=== PATIENT | male | born 1985 | race Caucasian/White ===

== ENCOUNTER 2020-06-13 16:47 | Emergency (ER) | payer OTHER, SELFPAY ==
[2020-06-13 16:48] VITALS: BP 120/90; PULSE 71; RESP 16; TEMP 36.9; O2SAT 95; BMI 28.3
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
[2020-06-13 17:19] VITALS: BP 122/85; PULSE 65; RESP 18; O2SAT 96
[2020-06-13 17:24] VITALS: BP 122/80; PULSE 87; RESP 16; TEMP 36.6; O2SAT 98
== END 2020-06-13 17:25 | disposition home or self-care (01) ==
PROVIDERS: Emergency Provider Emergency Medicine; PCP Family Medicine
DX: S01.01XA Laceration without foreign body of scalp, initial encounter (principal); W31.89XA Contact with other specified machinery, initial encounter; Y92.73 Farm field as the place of occurrence of the external cause
CPT/HCPCS: 12002; 99282

== ENCOUNTER → 2021-07-13 15:38 | Outpatient (CLI) | payer SELFPAY | PROVIDERS: PCP Family Medicine; Visit Provider Nurse Practitioner Family | DX: Z02.4 Encounter for examination for driving license (principal) ==